=== PATIENT | male | born 1935 | race Caucasian/White ===

== ENCOUNTER → 2023-11-27 | Day surgery (SDC) | payer BC, MEDICARE ==
[2023-11-25 08:48] LABS: BASOPHILS % 0.8 % (0.0-1.0); EOSINOPHILS # (AUTO) 0.3 (0.0-0.4); EOSINOPHILS % 5.3 % (0.0-6.0); HEMATOCRIT 33.5 % (38.2-49.6); HEMOGLOBIN 11.1 g/dL (14.0-18.0); LYMPHOCYTES # (AUTO) 1.1 (1.0-3.2); LYMPHOCYTES % 22.4 % (18.0-39.1); MEAN CORPUSCULAR HEMOGLOBIN 30.2 pg (28-32); MEAN CORPUSCULAR HGB CONC 33.1 g/dL (31-35); MONOCYTES # (AUTO) 0.6 (0.2-0.8); MONOCYTES % 12.1 % (4.4-11.3); NEUTROPHILS # (AUTO) 2.9 (2.1-6.9); NEUTROPHILS % 59.2 % (38.7-80.0); PLATELET COUNT 289 x10e3/uL (140-360); RED BLOOD COUNT 3.68 x10e6/uL (4.3-5.7); RED CELL DISTRIBUTION WIDTH 13.7 % (11.7-14.4); WHITE BLOOD COUNT 4.95 x10e3/uL (4.8-10.8)
[~2023-11-27] MED LIST: ARICEPT5 MG PO; ASPIRIN EC81 MG PO; FENTANYL CITRATE/PF 100MCG/2 ML INJ ONE; HYDROCHLOROTHIA25 MG PO; MULTI-VITAMIN1 EACH PO; NEURONTIN300 MG PO; NEXIUM20 MG PO; PRAMIPEXOLE D0.25 MG PO; PRIMIDONE125 MG PO; PROPOFOL IV EMULSION 50 ML IV ONE
[2023-11-27] MEDS: LACTATED RINGER'S 1,000 ML ONE (06:49)
[2023-11-27 08:01] VITALS: TEMP 97.9
[2023-11-27 08:30] VITALS: BP 126/75; PULSE 87; RESP 17; O2SAT 98
== END | disposition home or self-care (01) ==
LOC: ENDO 06:01
PROVIDERS: ATTEND Internal Medicine Gastroenterology
DX: K22.2 Esophageal obstruction (principal); K29.70 Gastritis, unspecified, without bleeding; K22.10 Ulcer of esophagus without bleeding; K44.9 Diaphragmatic hernia without obstruction or gangrene; G62.9 Polyneuropathy, unspecified; F03.90 Unspecified dementia, unspecified severity, without behavioral disturbance, psychotic disturbance, mood disturbance, and anxiety; Z01.812 Encounter for preprocedural laboratory examination; Z79.82 Long term (current) use of aspirin; Z79.899 Other long term (current) drug therapy; Z86.73 Personal history of transient ischemic attack (TIA), and cerebral infarction without residual deficits
CPT/HCPCS: 36415; 43248; 85025; J2470; J2704; J3010; J7121; 43450